=== PATIENT | female | born 2000 | race Two or more races ===

== ENCOUNTER 2024-06-07 15:26 | Emergency (ER) | payer OTHER ==
[~2024-06-07] VITALS: Ht 160 cm; Wt 61.2 kg
[2024-06-07] MEDS ORDERED: 0.9 % SODIUM CHLORIDE 1,000 ML IV ONE (16:30)
[2024-06-07] MEDS ORDERED: KETOROLAC TROMETHAMINE 60 MG VIAL IM ONE ×2 (16:30→16:34)
[2024-06-07] MEDS ORDERED: FAMOtidine 10 MG/ML (4ML VIAL) IV ONE (16:30)
[2024-06-07] MEDS ORDERED: ONDANSETRON HCL 2 MG/ML VIAL IV ONE (16:30)
[2024-06-07] MEDS ORDERED: ONDANSETRON HCL 2 MG/ML VIAL ONE (16:34)
[2024-06-07] MEDS ORDERED: FAMOTIDINE/PF 20 MG/2 ML VIAL ONE (16:35)
[2024-06-07 17:23] LABS: HEMATOCRIT 37.6 % (36.0-45.00); HEMOGLOBIN 12.5 g/dL (12.0-15.00); MEAN CELL VOLUME 84.3 fL (80.00-100.00); MEAN CORPUSCULAR HEMOGLOBIN 28.1 pg (27.00-32.0); MEAN CORPUSCULAR HGB CONC 33.3 g/dl (32.0-36.0); PLATELET COUNT 332 K/uL (150-450); RED BLOOD COUNT 4.46 M/uL (4.00-6.00); RED CELL DISTRIBUTION WIDTH 14.3 % (11.5-14.5)
[2024-06-07 17:55] LABS: ALBUMIN 4.2 gm/dL (3.4-5.0); ALKALINE PHOSPHATASE 45 U/L (50-136); ALT/SGPT 23 U/L (12-78); AMYLASE 41 U/L (25-115); ANION GAP 8 (10.0-20.0); AST/SGOT 19 U/L (15-37); BILIRUBIN TOTAL 0.66 mg/dL (0.3-1.2); BLOOD UREA NITROGEN 10 mg/dL (7-18); BUN CREA RATIO 16 (7.0-25.0); CALCIUM 9.6 mg/dL (8.5-10.1); CARBON DIOXIDE 30 mEq/L (21-32); CHLORIDE 108 mmol/L (98-107); CREATININE SERUM 0.61 mg/dL (0.55-1.02); GLOBULINA 3.5 G/DL (2.4-3.5); GLUCOSE FASTING 92 mg/dL (65-100); LIPASE 42 U/L (13-75); OSMOLALITY SERUM 282 MOSM/KG (275-295); POTASSIUM 4.09 mEq/L (3.5-5.1); SODIUM 142 mmol/L (136-145); TOTAL PROTEIN 7.7 gm/dL (6.4-8.2)
[2024-06-07 18:05] LABS: HCG QUANTITATIVE < 1 mUI/mL (1-3)
[2024-06-07] MEDS ORDERED: ZOFRAN8 MG PO (21:02)
[2024-06-07] MEDS ORDERED: PEPCID AC20 MG PO (21:02)
== END 2024-06-07 21:10 | disposition home or self-care (01) ==
LOC: ER 15:28
PROVIDERS: General Practice
DX: R11.2 Nausea with vomiting, unspecified (principal); R10.9 Unspecified abdominal pain

== ENCOUNTER 2024-06-15 15:21 | Outpatient (CLI) | payer OTHER ==
[~2024-06-15 15:21] MED LIST: PEPCID AC20 MG PO; ZOFRAN8 MG PO
[2024-06-15 15:54] LABS: HEMATOCRIT 36.9 % (36.0-45.00); HEMOGLOBIN 12.2 g/dL (12.0-15.00); MEAN CELL VOLUME 83.9 fL (80.00-100.00); MEAN CORPUSCULAR HEMOGLOBIN 27.7 pg (27.00-32.0); MEAN CORPUSCULAR HGB CONC 33.1 g/dl (32.0-36.0); PLATELET COUNT 304 K/uL (150-450); RED BLOOD COUNT 4.39 M/uL (4.00-6.00); RED CELL DISTRIBUTION WIDTH 14.2 % (11.5-14.5)
== END 2024-06-15 15:34 | disposition home or self-care (01) ==
LOC: LAB 15:21
PROVIDERS: ATTEND Emergency Medicine
DX: Z20.828 Contact with and (suspected) exposure to other viral communicable diseases (principal)

== ENCOUNTER 2024-07-21 01:25 | Outpatient (CLI) | payer OTHER | END 2024-07-21 02:00 | disposition home or self-care (01) | LOC: PPH VACUNA 01:25 | PROVIDERS: ATTEND Emergency Medicine Pediatric Emergency Medicine | DX: Z23 Encounter for immunization (principal) ==

== ENCOUNTER → 2024-10-28 | Emergency (ER) | payer OTHER ==
[~2024-10-28] VITALS: Ht 157.5 cm; Wt 61.2 kg
== END | disposition left against medical advice (07) ==
LOC: ER 23:26
DX: Z53.21 Procedure and treatment not carried out due to patient leaving prior to being seen by health care provider (principal)

== ENCOUNTER 2024-10-29 10:06 | Emergency (ER) | payer OTHER ==
[~2024-10-29] VITALS: Ht 157.5 cm; Wt 61.2 kg
[2024-10-29] MEDS ORDERED: DEXAMETHASONE SODIUM PHOSPHATE 4 MG/ML VIAL ONE (10:23)
[2024-10-29] MEDS ORDERED: ACETAMINOPHEN 500 MG GEL..CAP PO ONE ×2 (10:23→10:30)
[2024-10-29] MEDS ORDERED: GUAIFENESIN 200 MG/10 ML BLIST.PACK PO ONE ×2 (10:24→10:30)
[2024-10-29] MEDS ORDERED: DEXAMETHASONE SODIUM PHOSPHATE 4 MG/ML VIAL IM ONE (10:30)
[2024-10-29 11:32] LABS: HEMOGLOBIN 12.6 g/dL (12.0-15.00); MEAN CELL VOLUME 84.1 fL (80.00-100.00); MEAN CORPUSCULAR HEMOGLOBIN 28.6 pg (27.00-32.0); PLATELET COUNT 274 K/uL (150-450); RED BLOOD COUNT 4.39 M/uL (4.00-6.00); RED CELL DISTRIBUTION WIDTH 13.9 % (11.5-14.5)
== END 2024-10-29 11:59 | disposition home or self-care (01) ==
LOC: ER 10:09
PROVIDERS: General Practice
DX: R53.81 Other malaise (principal); J06.9 Acute upper respiratory infection, unspecified; Z20.822 Contact with and (suspected) exposure to COVID-19

== ENCOUNTER 2024-10-31 09:30 | Outpatient (CLI) | payer OTHER ==
[2024-10-31 11:15] LABS: HEMATOCRIT 39.8 % (36.0-45.00); HEMOGLOBIN 13.1 g/dL (12.0-15.00); MEAN CELL VOLUME 85.1 fL (80.00-100.00); MEAN CORPUSCULAR HEMOGLOBIN 27.9 pg (27.00-32.0); MEAN CORPUSCULAR HGB CONC 32.8 g/dl (32.0-36.0); PLATELET COUNT 290 K/uL (150-450); RED BLOOD COUNT 4.68 M/uL (4.00-6.00); RED CELL DISTRIBUTION WIDTH 13.8 % (11.5-14.5)
[2024-10-31 12:16] LABS: CALCIUM 9.3 mg/dL (8.5-10.1); CREATININE SERUM 0.7 mg/dL (0.55-1.02); GFR 101.15; POTASSIUM 3.96 mEq/L (3.5-5.1)
[2024-10-31 14:29] LABS: MYCOPLASMA PNEUMONIAE IGM REACTIVE (NO REACTIVE)
== END 2024-10-31 10:30 | disposition home or self-care (01) ==
LOC: LAB 09:30
PROVIDERS: ATTEND Emergency Medicine
DX: U07.1 COVID-19 (principal); A49.3 Mycoplasma infection, unspecified site; J10.1 Influenza due to other identified influenza virus with other respiratory manifestations; Z01.89 Encounter for other specified special examinations

== ENCOUNTER 2025-01-02 10:07 | Outpatient (CLI) | payer OTHER | END 2025-01-02 10:12 | disposition home or self-care (01) | LOC: LAB 10:07 | PROVIDERS: ATTEND General Practice | DX: Z33.1 Pregnant state, incidental (principal); Z33.2 Encounter for elective termination of pregnancy ==

== ENCOUNTER 2025-01-02 10:47 | Outpatient (CLI) | payer OTHER | END 2025-01-02 10:52 | disposition home or self-care (01) | LOC: SONOGRAMA 10:47 | PROVIDERS: ATTEND General Practice | DX: Z33.1 Pregnant state, incidental (principal); Z34.00 Encounter for supervision of normal first pregnancy, unspecified trimester ==

== ENCOUNTER 2025-01-09 07:18 | Outpatient (CLI) | payer OTHER | END 2025-01-09 07:20 | disposition home or self-care (01) | LOC: LAB 07:18 | PROVIDERS: ATTEND General Practice | DX: N91.0 Primary amenorrhea (principal) ==

== ENCOUNTER 2025-02-07 08:00 | Outpatient (CLI) | payer OTHER ==
[2025-02-08 15:48] LABS: RAPID PLASMA REAGIN NONREACTIVE BY RPR (NONREACTIVE)
[2025-02-10 07:11] LABS: RUBELLA IGG 2.48 index (Immune >0.99)
[2025-02-10 09:07] LABS: hav igm Negative (Negative); hcv Non Reactive (Non Reactive); hep b c Negative (Negative); hep b s ag Negative (Negative)
[2025-02-10 11:11] LABS: VARICELLA ZOSTER VIRUS IGG Reactive (Non Reactive)
[2025-02-10 15:10] LABS: hgb a 97.7 % (96.4-98.8); hgb a2 2.3 % (1.8-3.2); hgb f 0 % (0.0-2.0); hgb s 0 % (0.0)
== END 2025-02-07 11:57 | disposition home or self-care (01) ==
LOC: LAB 08:00
PROVIDERS: ATTEND Obstetrics & Gynecology
DX: O09.91 Supervision of high risk pregnancy, unspecified, first trimester (principal)

== ENCOUNTER → 2025-02-09 | Emergency (ER) | payer OTHER ==
[~2025-02-09] VITALS: Ht 157.5 cm; Wt 61.2 kg
[2025-02-09 18:55] VITALS: BP 105/68; O2SAT 99
[2025-02-09 20:33] LABS: HEMATOCRIT 34.7 % (36.0-45.00); HEMOGLOBIN 11.9 g/dL (12.0-15.00); MEAN CELL VOLUME 83.9 fL (80.00-100.00); MEAN CORPUSCULAR HEMOGLOBIN 28.7 pg (27.00-32.0); MEAN CORPUSCULAR HGB CONC 34.3 g/dl (32.0-36.0); PLATELET COUNT 311 K/uL (150-450); RED BLOOD COUNT 4.13 M/uL (4.00-6.00); RED CELL DISTRIBUTION WIDTH 14.1 % (11.5-14.5)
== END | disposition home or self-care (01) ==
LOC: ER 18:41
PROVIDERS: Preventive Medicine Public Health & General Preventive Medicine
DX: R53.81 Other malaise (principal); Z3A.10 10 weeks gestation of pregnancy; Z91.040 Latex allergy status

== ENCOUNTER 2025-02-18 19:35 | Emergency (ER) | payer OTHER ==
[~2025-02-18] VITALS: Ht 157.5 cm; Wt 61.2 kg
[2025-02-18] MEDS ORDERED: PRENATAL + DHA1 EAC1 PO (19:40)
[2025-02-18 20:57] LABS: HEMATOCRIT 34.3 % (36.0-45.00); HEMOGLOBIN 11.8 g/dL (12.0-15.00); MEAN CELL VOLUME 83.6 fL (80.00-100.00); MEAN CORPUSCULAR HEMOGLOBIN 28.7 pg (27.00-32.0); MEAN CORPUSCULAR HGB CONC 34.4 g/dl (32.0-36.0); PLATELET COUNT 300 K/uL (150-450); RED CELL DISTRIBUTION WIDTH 13.7 % (11.5-14.5)
[2025-02-18 22:17] LABS: CALCIUM 9.1 mg/dL (8.5-10.1); CREATININE SERUM 0.49 mg/dL (0.55-1.02); GFR 152.66; POTASSIUM 3.65 mEq/L (3.5-5.1)
[2025-02-18 22:40] LABS: PH,URINE 7.5 (5.0-8.0); URINE APPEARANCE Clear; URINE BILIRRUBIN Negative (NEGATIVE); URINE BLOOD Small; URINE COLOR Yellow; URINE GLUCOSE Negative (NEGATIVE); URINE KETONE Negative (NEGATIVE); URINE LEUKOCYTE Large; URINE NITRATE Negative; URINE PROTEIN Negative (NEGATIVE); URINE UROBILINOGEN 0.2 E.U./dl
[2025-02-18 22:45] LABS: URINE BACTERIA 127.2 uL (0.0-1933); URINE EPITHELIAL CELLS 3.6 uL (0.0-38.8); URINE RBC 5.1 uL (0.0-20.8); URINE WBC 7.7 uL (0.0-23.2)
== END 2025-02-18 23:44 | disposition home or self-care (01) ==
LOC: ER 19:35
PROVIDERS: Emergency Medicine
DX: O20.9 Hemorrhage in early pregnancy, unspecified (principal); O23.41 Unspecified infection of urinary tract in pregnancy, first trimester; N39.0 Urinary tract infection, site not specified; Z3A.12 12 weeks gestation of pregnancy; Z91.040 Latex allergy status

== ENCOUNTER 2025-03-11 11:22 | Emergency (ER) | payer OTHER ==
[~2025-03-11] VITALS: Ht 154.9 cm; Wt 61.2 kg
[~2025-03-11 11:22] MED LIST changes: +PRENATAL + DHA1 EAC1 PO
[2025-03-11] MEDS ORDERED: FOLIC ACID20 MG (11:26)
[2025-03-11 14:18] LABS: BASO % 0.5 % (0.1-1.2); EOS # 0.06 (0.04-0.54); EOS % 0.7 % (0.7-7.0); HEMATOCRIT 31.8 % (34.1-44.9); HEMOGLOBIN 10.8 g/dL (11.2-15.7); LYMPH # 2.19 (1.18-3.74); LYMPH % 25.7 % (19.3-53.1); MEAN CORPUSCULAR HEMOGLOBIN 27.9 pg (25.6-32.2); MONO # 0.53 (0.24-0.82); MONO % 6.2 % (4.7-12.5); NEUT # 5.68 (1.56-6.13); NEUT % 66.7 % (34.0-71.1); PLATELET COUNT 269 K/uL (163-369); RED BLOOD COUNT 3.87 M/uL (3.93-5.22); RED CELL DISTRIBUTION WIDTH 13.4 % (11.6-14.4)
[2025-03-11 14:29] LABS: URINE APPEARANCE Clear; URINE BILIRRUBIN Negative (NEGATIVE); URINE BLOOD Small; URINE COLOR Yellow; URINE GLUCOSE Negative (NEGATIVE); URINE KETONE Negative (NEGATIVE); URINE LEUKOCYTE Large; URINE NITRATE Negative; URINE PROTEIN Negative (NEGATIVE); URINE UROBILINOGEN 0.2 E.U./dl
[2025-03-11 14:31] LABS: URINE BACTERIA 566.6 uL (0.0-1933); URINE EPITHELIAL CELLS 12.8 uL (0.0-38.8); URINE RBC 8.2 uL (0.0-20.8); URINE WBC 85.4 uL (0.0-23.2)
[2025-03-11 15:00] LABS: CALCIUM 8.8 mg/dL (8.5-10.1); CREATININE SERUM 0.45 mg/dL (0.55-1.02); GFR 168.42; POTASSIUM 4.14 mEq/L (3.5-5.1)
== END 2025-03-11 17:19 | disposition home or self-care (01) ==
LOC: ER 11:22
PROVIDERS: Emergency Medicine
DX: O20.8 Other hemorrhage in early pregnancy (principal); Z3A.15 15 weeks gestation of pregnancy; N39.0 Urinary tract infection, site not specified; R10.2 Pelvic and perineal pain; Z91.040 Latex allergy status

== ENCOUNTER 2025-03-19 11:44 | Emergency (ER) | payer OTHER ==
[~2025-03-19] VITALS: Ht 157.5 cm; Wt 61.2 kg
[~2025-03-19 11:44] MED LIST changes: +FOLIC ACID20 MG
[2025-03-19 12:57] LABS: BASO % 0.3 % (0.1-1.2); EOS # 0.03 (0.04-0.54); EOS % 0.3 % (0.7-7.0); HEMATOCRIT 33.5 % (34.1-44.9); HEMOGLOBIN 11.4 g/dL (11.2-15.7); LYMPH # 1.35 (1.18-3.74); LYMPH % 11.3 % (19.3-53.1); MEAN CORPUSCULAR HEMOGLOBIN 28.1 pg (25.6-32.2); MONO # 0.56 (0.24-0.82); MONO % 4.7 % (4.7-12.5); NEUT # 9.98 (1.56-6.13); NEUT % 83.1 % (34.0-71.1); PLATELET COUNT 271 K/uL (163-369); RED BLOOD COUNT 4.05 M/uL (3.93-5.22); RED CELL DISTRIBUTION WIDTH 13.4 % (11.6-14.4)
[2025-03-19 13:34] LABS: PH,URINE 6.5 (5.0-8.0); URINE APPEARANCE Clear; URINE BILIRRUBIN Negative (NEGATIVE); URINE BLOOD Moderate; URINE COLOR Yellow; URINE GLUCOSE Negative (NEGATIVE); URINE KETONE Negative (NEGATIVE); URINE LEUKOCYTE Moderate; URINE NITRATE Negative; URINE PROTEIN Negative (NEGATIVE); URINE UROBILINOGEN 0.2 E.U./dl
[2025-03-19 13:37] LABS: URINE BACTERIA 143.1 uL (0.0-1933); URINE EPITHELIAL CELLS 10.2 uL (0.0-38.8)
== END 2025-03-19 14:51 | disposition home or self-care (01) ==
LOC: ER 11:48
PROVIDERS: General Practice
DX: Z34.90 Encounter for supervision of normal pregnancy, unspecified, unspecified trimester (principal); Z3A.16 16 weeks gestation of pregnancy; R10.2 Pelvic and perineal pain; Z91.040 Latex allergy status

== ENCOUNTER 2025-03-21 17:55 | Inpatient (IN) | payer OTHER ==
[~2025-03-21] VITALS: Ht 157.5 cm; Wt 61.7 kg
[2025-03-21] MEDS ORDERED: MAGNESIUM SULFATE IN WATER 0.04 GM/ML IV.SOLN IV ONE (18:05)
[2025-03-21] MEDS ORDERED: CEFAZOLIN SODIUM 1,000 MG VIAL ONE (18:05)
[2025-03-21 18:22] VITALS: BP 108/69
[2025-03-21] MEDS ORDERED: ONDANSETRON HCL 2 MG/ML VIAL IV PRN (19:00)
[2025-03-21] MEDS ORDERED: RINGERS SOLUTION,LACTATED 1,000 ML IV SCH (19:00)
[2025-03-21] MEDS ORDERED: MAGNESIUM SULFATE IN WATER 500 ML IV SCH (19:00)
[2025-03-21] MEDS ORDERED: ACETAMINOPHEN 500 MG GEL..CAP PO PRN (19:00)
[2025-03-21] MEDS ORDERED: CEFAZOLIN SODIUM 1,000 MG VIAL IV SCH (19:00)
[2025-03-21 19:50] VITALS: BP 101/65
[2025-03-21 19:55] LABS: BASO % 0.4 % (0.1-1.2); EOS # 0.04 (0.04-0.54); EOS % 0.4 % (0.7-7.0); HEMOGLOBIN 10.9 g/dL (11.2-15.7); LYMPH # 1.43 (1.18-3.74); LYMPH % 13.1 % (19.3-53.1); MEAN CORPUSCULAR HEMOGLOBIN 28.5 pg (25.6-32.2); MONO # 0.63 (0.24-0.82); MONO % 5.8 % (4.7-12.5); NEUT # 8.72 (1.56-6.13); NEUT % 79.8 % (34.0-71.1); PLATELET COUNT 267 K/uL (163-369); RED BLOOD COUNT 3.83 M/uL (3.93-5.22); RED CELL DISTRIBUTION WIDTH 13.4 % (11.6-14.4)
[2025-03-21 20:16] LABS: INR 0.94; PROTHROMBIN TIME 10.3 SECONDS (9.0-11.5)
[2025-03-21 20:21] LABS: ALBUMIN 3.1 gm/dL (3.4-5.0); BILIRUBIN TOTAL 0.16 mg/dL (0.3-1.2); CALCIUM 8.8 mg/dL (8.5-10.1); CREATININE SERUM 0.36 mg/dL (0.55-1.02); GFR 217.89; GLOBULINA 3.4 G/DL (2.4-3.5); POTASSIUM 3.94 mEq/L (3.5-5.1); TOTAL PROTEIN 6.5 gm/dL (6.4-8.2)
[2025-03-21 20:34] LABS: RH POSITIVE
[2025-03-21] MEDS ORDERED: VITAMIN C100 MG PO (20:35)
[2025-03-21] MEDS ORDERED: ENDOMETRIN100 MG VAG (20:35)
[2025-03-21] MEDS ORDERED: PATIENTS OWN MEDICATION (MEDICAMENTO EN PISO) VAG SCH (21:00)
[2025-03-21] MEDS ORDERED: FAMOTIDINE/PF 20 MG/2 ML VIAL IV PUSH SCH (21:00)
[2025-03-21] MEDS ORDERED: ACETAMINOPHEN 500 MG GEL..CAP PO ONE (21:18)
[2025-03-21 23:30] VITALS: BP 89/52
[2025-03-22 03:22] VITALS: BP 97/60
[2025-03-22 06:18] VITALS: BP 107/68; O2SAT 100
[2025-03-22] MEDS ORDERED: POVIDONE-IODINE SCRUB 118 ML BOTT TOP ONE (11:45)
[2025-03-22] MEDS ORDERED: CEFAZOLIN SODIUM 1,000 MG VIAL ONE (12:40)
[2025-03-22 14:03] VITALS: BP 102/65
[2025-03-22 15:31] VITALS: BP 107/68
[2025-03-22 19:04] VITALS: BP 101/65
[2025-03-22] MEDS ORDERED: hydrOXYzine PAMOATE 25 MG CAPSULE PO ONE (22:09)
[2025-03-22] MEDS ORDERED: hydrOXYzine PAMOATE 25 MG CAPSULE PO STA (22:19)
[2025-03-22] MEDS ORDERED: MAGNESIUM SULFATE IN WATER 0.04 GM/ML IV.SOLN IV ONE (23:20)
[2025-03-22 23:30] VITALS: BP 107/69
[2025-03-23 03:02] VITALS: BP 97/62
[2025-03-23 06:26] VITALS: BP 106/68; O2SAT 100
[2025-03-23] MEDS ORDERED: ONDANSETRON HCL 2 MG/ML VIAL ONE (07:43)
[2025-03-23 11:15] VITALS: BP 111/71
[2025-03-23] MEDS ORDERED: DOCUSATE SODIUM 100MG CAP PO SCH (12:00)
[2025-03-23 15:12] VITALS: BP 94/59
[2025-03-23] MEDS ORDERED: MAGNESIUM HYDROXIDE 30 ML BLIST.PACK PO ONE (17:45)
[2025-03-23 18:50] VITALS: BP 101/65
[2025-03-23] MEDS ORDERED: MAGNESIUM SULFATE IN WATER 0.04 GM/ML IV.SOLN IV ONE (20:14)
[2025-03-23] MEDS ORDERED: MAGNESIUM SULFATE IN WATER 4 GM/100 ML PIGGYBACK IV ONE ×2 (20:14→21:00)
[2025-03-23] MEDS ORDERED: MAGNESIUM SULFATE IN WATER 50 ML IV ONE (21:00)
[2025-03-23] MEDS ORDERED: MAGNESIUM SULFATE IN WATER 500 ML IV SCH (21:15)
[2025-03-24] VITALS (7 sets, daily range): BP systolic 95–120; BP diastolic 60–77; O2SAT 99
[2025-03-24 05:15] LABS: BASO % 0.3 % (0.1-1.2); EOS # 0.03 (0.04-0.54); EOS % 0.3 % (0.7-7.0); HEMATOCRIT 31.8 % (34.1-44.9); HEMOGLOBIN 10.7 g/dL (11.2-15.7); LYMPH # 1.32 (1.18-3.74); LYMPH % 13.7 % (19.3-53.1); MEAN CORPUSCULAR HEMOGLOBIN 27.6 pg (25.6-32.2); MONO # 0.61 (0.24-0.82); MONO % 6.3 % (4.7-12.5); NEUT # 7.58 (1.56-6.13); PLATELET COUNT 282 K/uL (163-369); RED BLOOD COUNT 3.88 M/uL (3.93-5.22); RED CELL DISTRIBUTION WIDTH 13.5 % (11.6-14.4)
[2025-03-24] MEDS ORDERED: SOD FERRIC GLUC COMPLX/SUCROSE 62.5 MG/5 ML AMPUL IV SCH (17:37)
[2025-03-24] MEDS ORDERED: FAMOtidine 20 MG TABLET PO SCH (21:00)
[2025-03-25] VITALS (8 sets, daily range): BP systolic 85–121; BP diastolic 60–77
[2025-03-25] MEDS ORDERED: MORPHINE SULFATE 4 MG/ML CARTRIDGE IV ONE ×2 (02:00→13:30)
[2025-03-26 03:09] VITALS: BP 97/60
[2025-03-26 07:34] VITALS: BP 100/63
[2025-03-26] MEDS ORDERED: MAGNESIUM SULFATE IN WATER 0.04 GM/ML IV.SOLN IV ONE (10:30)
[2025-03-26 12:28] VITALS: BP 114/74
[2025-03-26] MEDS ORDERED: DOCUSATE SODIUM 100MG CAP PO SCH (14:00)
[2025-03-26 15:06] VITALS: BP 105/69
[2025-03-26 20:15] VITALS: BP 96/57
[2025-03-26 23:04] VITALS: BP 100/65
[2025-03-27] MEDS ORDERED: CHLORHEXIDINE GLUCONATE 120 ML BOTTLE TOP ONE ×2 (00:02→00:30)
[2025-03-27] MEDS ORDERED: MORPHINE SULFATE 4 MG/ML CARTRIDGE IV PRN (00:30)
[2025-03-27 01:03] LABS: BASO % 0.3 % (0.1-1.2); HEMATOCRIT 32.1 % (34.1-44.9); HEMOGLOBIN 10.7 g/dL (11.2-15.7); LYMPH # 1.55 (1.18-3.74); LYMPH % 16.1 % (19.3-53.1); MEAN CORPUSCULAR HEMOGLOBIN 27.7 pg (25.6-32.2); MONO # 0.57 (0.24-0.82); MONO % 5.9 % (4.7-12.5); NEUT # 7.31 (1.56-6.13); PLATELET COUNT 314 K/uL (163-369); RED BLOOD COUNT 3.86 M/uL (3.93-5.22); RED CELL DISTRIBUTION WIDTH 13.4 % (11.6-14.4)
[2025-03-27 01:43] LABS: INR < 0.93; PARTIAL THROMBOPLASTIN TIME 32.2 SECONDS (22.0-34.0)
[2025-03-27 01:53] LABS: ALBUMIN 2.8 gm/dL (3.4-5.0); BILIRUBIN TOTAL 0.12 mg/dL (0.3-1.2); CALCIUM 8.5 mg/dL (8.5-10.1); CREATININE SERUM 0.44 mg/dL (0.55-1.02); GFR 172.85; GLOBULINA 3.6 G/DL (2.4-3.5); POTASSIUM 4.34 mEq/L (3.5-5.1); TOTAL PROTEIN 6.4 gm/dL (6.4-8.2)
[2025-03-27 02:57] VITALS: BP 124/62
[2025-03-27 07:23] VITALS: BP 108/58
[2025-03-27] MEDS ORDERED: MISOPROSTOL 100 MCG TABLET ONE ×2 (08:16→13:55)
[2025-03-27] MEDS ORDERED: MISOPROSTOL 100 MCG TABLET VAG ONE (08:45)
[2025-03-27] MEDS ORDERED: MISOPROSTOL 100 MCG TABLET BUCAL ONE ×2 (08:45→11:20)
[2025-03-27] MEDS ORDERED: OXYTOCIN 20 UNITS/1000ML RL PIGGYBAG IV ONE ×3 (09:55→18:37)
[2025-03-27 15:00] LABS: BASO % 0.3 % (0.1-1.2); EOS # 0.07 (0.04-0.54); EOS % 0.6 % (0.7-7.0); HEMATOCRIT 29.1 % (34.1-44.9); HEMOGLOBIN 9.7 g/dL (11.2-15.7); LYMPH # 1.53 (1.18-3.74); LYMPH % 12.8 % (19.3-53.1); MEAN CORPUSCULAR HEMOGLOBIN 28.1 pg (25.6-32.2); MONO # 0.55 (0.24-0.82); MONO % 4.6 % (4.7-12.5); NEUT # 9.65 (1.56-6.13); NEUT % 80.4 % (34.0-71.1); PLATELET COUNT 293 K/uL (163-369); RED BLOOD COUNT 3.45 M/uL (3.93-5.22); RED CELL DISTRIBUTION WIDTH 13.6 % (11.6-14.4)
[2025-03-27 15:22] VITALS: BP 119/59
[2025-03-27] MEDS ORDERED: ONDANSETRON HCL 2 MG/ML VIAL ONE (15:31)
[2025-03-27] MEDS ORDERED: ONDANSETRON HCL 2 MG/ML VIAL IV PRN (16:00)
[2025-03-27 20:18] VITALS: BP 93/60
== END 2025-03-27 20:51 | disposition home or self-care (01) | DRG 819 ==
LOC: LDR 17:55 → OB/GYN 03-27 11:13
PROVIDERS: Obstetrics & Gynecology; Obstetrics & Gynecology Gynecology; Obstetrics & Gynecology Maternal & Fetal Medicine; ADMIT Obstetrics & Gynecology; ATTEND Obstetrics & Gynecology
PROC: 4A1HXCZ Monitoring of Products of Conception, Cardiac Rate, External Approach (ICD-10-PCS; 2025-03-21)
PROC: 0UVC7ZZ Restriction of Cervix, Via Natural or Artificial Opening (ICD-10-PCS; principal; 2025-03-22 12:00)
PROC: BY4CZZZ Ultrasonography of Second Trimester, Single Fetus (ICD-10-PCS; 2025-03-23)
PROC: BU4CZZZ Ultrasonography of Uterus and Ovaries (ICD-10-PCS; 2025-03-23)
PROC: BW4GZZZ Ultrasonography of Pelvic Region (ICD-10-PCS; 2025-03-27)
PROC: BY4CZZZ Ultrasonography of Second Trimester, Single Fetus (ICD-10-PCS; 2025-03-27)
DX: O34.32 Maternal care for cervical incompetence, second trimester (principal); O26.842 Uterine size-date discrepancy, second trimester; Z3A.16 16 weeks gestation of pregnancy